=== PATIENT | male | born 1930 | race Caucasian/White ===

== ENCOUNTER → 2016-10-07 | Outpatient (CLI) | payer MEDICARE ==
[~2016-10-07] MED LIST: ALBU0.632 IH; ALBU0.8322 IH; ALBU2.5V4 IH; ALBU2.5V4 INH; ALDACTONE25 MG PO; AMIL5TAB3 PO; ASCO500C14 PO; ASPI325T32 PO; ATEN25TA PO; BUDE10.22 IH; CALC-9 PO; CARV3.122 PO; CARV6.252 PO; CEFD300C16 PO; CEFD300C3 PO; CETI10TA17 PO; COD1CAPS16 PO; DILT120C8 PO; DOXY100C2 PO; DOXY100C49 PO; FURO40TA4 PO; FURO80TA PO; FURO80TA3 PO; HYDR-3583 PO; IPR14IN INH; IPRA0.2S18 IH; IPRA0.2S47 IH; IPRA30SP NS; IPRA3AMP IH; KCL10CCR PO; LEVO750T24 PO; LORA10TA2 PO; LORA1TAB5 PO; MAGN400O7 PO; MPR22T TOP; NYST1000 PO; OMEP-10 PO; OMG1KC PO; ORPH100T; OXYC1TAB87 PO; POLY17PO23 PO; PRD10T PO; PRD20T PO; PRD5T PO; RT-COMBINH INH; SULF1TAB38 PO; WARF5TAB PO; WRF2.5T PO; WRF5T PO
--- NOTE | 2016-10-08 10:12 | ECHOCARDIOGRAPHY REPORT ---
DATE OF SERVICE: 10/07/2016 PROCEDURE: Two-dimensional echocardiogram. REFERRING PHYSICIAN: Dr. Mccray INDICATIONS: Congestive heart failure. MEASUREMENTS: LVID end diastolic 5.0. IVS thickness 1.1. LVPW thickness 1.0. Left atrial diameter 3.6. Ejection fraction 40%. FINDINGS: 1. Technical quality is good. 2. The left ventricle is prominent with diffuse left ventricle hypokinesia. Systolic function is reduced. Estimated ejection fraction 40%. 3. The left atrium is normal in size. No clot or thrombus were seen within the left atrium. 4. The right atrium and right ventricle are normal in size. No clot or thrombus were seen within the right side. 5. The mitral valve is normal in morphology with mild mitral regurgitation noted by color Doppler flow. No mitral valve prolapse. No mitral valve stenosis. 6. The aortic valve is trileaflet with normal opening and closing pattern. No significant aortic stenosis or regurgitation was seen. 7. The tricuspid valve is normal in morphology with mild tricuspid regurgitation noted by color Doppler flow. Doppler across tricuspid valve estimated pulmonary artery pressure of 15 plus right atrial pressure. 8. The pulmonic valve is functioning normally. 9. No pericardial effusion. CONCLUSION: 1. Prominent left ventricle with diffuse left ventricular hypokinesia. Systolic function is reduced. Estimated ejection fraction of 40%. 2. Mild mitral and tricuspid regurgitation. 3. Aortic valve sclerosis. No aortic stenosis. 4. Estimated pulmonary artery pressure of 20-25 mmHg. Job ID: [id number] DocumentID: [id number] Dictated Date: 10/07/2016 17:08:13 Solutions Developer Date: 10/08/2016 09:34:40 Dictated By: DC VÁZQUEZ MD
== END ==
LOC: CARD 15:04
PROVIDERS: ATTEND Internal Medicine Cardiovascular Disease
DX: R07.89 Other chest pain (principal); I50.9 Heart failure, unspecified; I44.4 Left anterior fascicular block; I51.7 Cardiomegaly; E78.2 Mixed hyperlipidemia
CPT/HCPCS: 93306

== ENCOUNTER 2016-11-04 19:05 | Inpatient (IN) | payer MEDICARE ==
[~2016-11-04] VITALS: Ht 180.3 cm; Wt 89.1 kg
[~2016-11-04 19:05] MED LIST changes: -ALBU2.5V4 IH; +ALBU2.5V4 NEB
[2016-11-04] MEDS ORDERED: FUROSEMIDE 40 MG/4 ML INJ (LASIX) IVP ONE (19:15)
[2016-11-04] MEDS ORDERED: methylPREDNISolone 125 MG (Solu-MEDROL) VIAL IVP ONE (19:15)
[2016-11-04] MEDS ORDERED: ACETAMINOPHEN 500 MG TAB (TYLENOL) PO ONE (19:15)
[2016-11-04] MEDS ORDERED: LACTATED RINGERS 1,000 ML IV ONE ×2 (19:35→21:07)
[2016-11-04 19:37] LABS: BASOPHILS % (AUTO) 0 % (0-10); EOSINOPHILS % (AUTO) 0 % (0-10); LYMPHOCYTES # (AUTO) 0.4 X 10^3 (1.0-4.0); LYMPHOCYTES % (AUTO) 3 % (12-44); MEAN CORPUSCULAR HEMOGLOBIN 31 PG (25-34); MEAN CORPUSCULAR HGB CONC 33 G/DL (32-36); MEAN CORPUSCULAR VOLUME 94 FL (80-99); MEAN PLATELET VOLUME 10.6 FL (7.4-10.4); MONOCYTES # (AUTO) 0.1 X 10^3 (0.0-1.0); MONOCYTES % (AUTO) 1 % (0-12); NEUTROPHILS # (AUTO) 9.7 X 10^3 (1.8-7.8); NEUTROPHILS % (AUTO) 95 % (42-75); PLATELET COUNT 75 10^3/uL (130-400); RED BLOOD COUNT 4.41 10^6/uL (4.35-5.85); RED CELL DISTRIBUTION WIDTH 14.8 % (10.0-14.5); WHITE BLOOD COUNT 10.2 10^3/uL (4.3-11.0)
[2016-11-04 19:53] LABS: INR 1.2 (0.8-1.4); PROTHROMBIN TIME PATIENT 14.7 SEC (12.2-14.7)
--- NOTE | 2016-11-04 19:53 | Diagnostic Imaging Report ---
INDICATION: Chest pain, shortness of air for several days COMPARISON STUDIES: None FINDINGS: A frontal view of the chest demonstrates previous sternotomy changes. There is blunting of the left costophrenic angle which could be from the surgery or small effusion. The vascularity is normal. The lungs are clear. IMPRESSION: There are postoperative changes with blunting of the left costophrenic angle which could be from a small effusion versus fibrosis from the patient's surgery. Dictated by: Dictated on workstation # [id number]
--- NOTE | 2016-11-04 19:58 | ED Respiratory ---
General Chief Complaint: Chest Pain Stated Complaint: SOB Source: patient (VERY LIMITED HISTORIAN), EMS History of Present Illness Time seen by provider: 19:00 Initial Comments PT ARRIVES VIA EMS FROM HOME--[facility] TREATMENT IS IN PROCESS ON ARRIVAL BY EMS C/O SHORTNESS OF BREATH--PT TELLS ME HE HAS BEEN FEELING THIS WAY FOR 2 WEEKS, EMS REPORT THAT IT HAD BEEN GOING ON FOR 3 DAYS C/O CHEST PAIN EARLIER, BUT NOT NOW LEGS ARE SWOLLEN, BUT PT STATES THEY SWELL AT TIMES PT HAS HAD GENERALIZED WEAKNESS, AND COULD NOT GET TO HIS HOME OXYGEN, WHICH HE USES PRN EMS REPORT O2 SAT AT HOME WAS 93% PT HAD TEMP OF 101.9 BY THEM AT THE RESIDENCE PT HAS BEEN INCONTINENT OF URINE EMS REPORT THAT NEITHER PT NOR HAVE EATEN TODAY, AND WAS GOING TO STAY AT HOME AND GET SOMETHING TO EAT--NO EXPLANATION TO WHY NEITHER HAD EATEN TODAY. IS UNKNOWN WHEN PT LAST HAD ANYTHING TO EAT OR DRINK NO OTHER RELEVANT INFORMATION IS OBTAINABLE PCP: DR. BECKER AT [facility] Allergies and Home Medications Allergies Coded Allergies: spironolactone (Verified Allergy, Unknown, 11/04/16) Home Medications ASA/Salicylam/Acetaminoph/Caff 1 Each Tablet, 1 EACH PO, (Reported) Albuterol Sulfate 0.63 Mg/3 Ml Vial.neb, 0.63 MG IH, (Reported) Budesonide/Formoterol Fumarate 10.2 Gm Hfa.aer.ad, 2 PUFF IH BID, (Reported) Calcium Carbonate 500 Mg Tablet, 500 MG PO, (Reported) Cod Liver Oil 1 Each Capsule, 1 EACH PO, (Reported) Fexofenadine/Pseudoephedrine 1 Each Tab.er.24h, 1 EACH PO, (Reported) Furosemide 80 Mg Tablet, 80 MG PO, (Reported) Ipratropium [place] 0.2 Mg/1 Ml Solution, 0.2 MG IH, (Reported) [place]-3 Fatty Acids 300 Mg Capsule, 300 MG PO, (Reported) Omeprazole 20 Mg Capsule.dr, 20 MG PO, (Reported) Polyethylene Glycol 3350 17 Gm Powd.pack, 17 GM PO, (Reported) Potassium 99 Mg Tablet, 99 MG PO, (Reported) Vit A/C/E/Zinc/Co 1 Cap Capsule, 1 CAP PO, (Reported) Constitutional: fever, malaise, weakness, other (VERY LIMITED) Respiratory: see HPI, short of breath Cardiovascular: chest pain, edema Musculoskeletal: see HPI (LEG SWELLING) Past Bcfdkgr-Pbnmkl-Tnlaeh Hx Family Medical History Other NO PMH IS OBTAINABLE AT THIS TIME, PT IS UNABLE TO ANSWER QUESTIONS AT THIS TIME NO OLD RECORDS ARE AVAILABLE NO FAMILY IS HERE WITH PT. Physical Exam Vital Signs Vital Sign - Last 12Hours 11/04/16 19:05 FiO2 97 Capillary Refill : General Appearance: mild distress, other (LETHARGIC. UMKEMPT. REEKS OF OLD URINE AND STOOL. ), thin HEENT: other (VERY DRY [place]) Respiratory: respiratory distress, decreased breath sounds, accessory muscle use, wheezing (DIFFUSE WHEEZING. ) Cardiovascular: no JVD, No JVD, other (HEART SOUNDS OBSCURED BY LUNG SOUNDS. TACHYCARDIA ON MONITOR) Gastrointestinal: non tender, soft Extremities: pedal edema (2-3+ EDEMA BILATERALLY) Neurologic/Psychiatric: other (HAND TREMORS. PT IS LETHARGIC. DOES MOVE ALL EXTREMITIES EQUALLY AND GROSS SENSORY IS INTACT. ) Skin: warm/dry (VERY WARM), jaundice (SLIGHTLY), pallor Focused Exam Lactic Acid Level Laboratory Tests Test 11/04/16 19:18 Lactic Acid Level 2.36 MMOL/L (0.50-2.00) *H Progress/Results/Core Measures Results/Orders Lab Results Laboratory Tests Test 11/04/16 19:18 11/04/16 19:50 11/04/16 20:05 Range/Units White Blood Count 10.2 4.3-11.0 10^3/uL Red Blood Count 4.41 4.35-5.85 10^6/uL Hemoglobin 13.5 13.3-17.7 G/DL Hematocrit 42 40-54 % Mean Corpuscular Volume 94 80-99 FL Mean Corpuscular Hemoglobin 31 25-34 PG Mean Corpuscular Hemoglobin Concent 33 32-36 G/DL Red Cell Distribution Width 14.8 H 10.0-14.5 % Platelet Count 75 L 130-400 10^3/uL Mean Platelet Volume 10.6 H 7.4-10.4 FL Neutrophils (%) (Auto) 95 H 42-75 % Lymphocytes (%) (Auto) 3 L 12-44 % Monocytes (%) (Auto) 1 0-12 % Eosinophils (%) (Auto) 0 0-10 % Basophils (%) (Auto) 0 0-10 % Neutrophils # (Auto) 9.7 H 1.8-7.8 X 10^3 Lymphocytes # (Auto) 0.4 L 1.0-4.0 X 10^3 Monocytes # (Auto) 0.1 0.0-1.0 X 10^3 Eosinophils # (Auto) 0.0 0.0-0.3 10^3/uL Basophils # (Auto) 0.0 0.0-0.1 10^3/uL Neutrophils % (Manual) 77 % Lymphocytes % (Manual) 9 % Monocytes % (Manual) 0 % Eosinophils % (Manual) 0 % Basophils % (Manual) 0 % Band Neutrophils 14 % Blood Morphology Comment NORMAL Prothrombin Time 14.7 12.2-14.7 SEC INR Comment 1.2 0.8-1.4 Activated Partial Thromboplast Time 30 24-35 SEC Sodium Level 142 135-145 MMOL/L Potassium Level 3.4 L 3.6-5.0 MMOL/L Chloride Level 99 98-107 MMOL/L Carbon Dioxide Level 30 21-32 MMOL/L Anion Gap 13 5-14 MMOL/L Blood Urea Nitrogen 31 H 7-18 MG/DL Creatinine 1.36 H 0.60-1.30 MG/DL Estimat Glomerular Filtration Rate 50 BUN/Creatinine Ratio 23 Glucose Level 96 70-105 MG/DL Lactic Acid Level 2.36 *H 0.50-2.00 MMOL/L Calcium Level 9.1 8.5-10.1 MG/DL Magnesium Level 2.1 1.8-2.4 MG/DL Total Bilirubin 3.5 H 0.1-1.0 MG/DL Aspartate Amino Transf (AST/SGOT) 56 H 5-34 U/L Alanine Aminotransferase (ALT/SGPT) 44 0-55 U/L Alkaline Phosphatase 298 H 40-136 U/L Total Creatine Kinase 117 30-200 U/L Creatine Kinase MB 2.0 <6.6 NG/ML Troponin I < 0.30 <0.30 NG/ML B-Type Natriuretic Peptide 317.5 H <100.0 PG/ML Total Protein 5.9 L 6.4-8.2 G/DL Albumin 3.6 3.2-4.5 G/DL TSH [place] Testing 1.65 0.35-4.94 UIU/ML Blood Gas Puncture Site RIGHT RADIAL Blood Gas Patient Temperature 102.3 Arterial Blood pH 7.47 H 7.37-7.43 Arterial Blood Partial Pressure CO2 39 35-45 MMHG Arterial Blood Partial Pressure O2 82 79-93 MMHG Arterial Blood HCO3 28 H 23-27 MMOL/L Arterial Blood Total CO2 28.6 21.0-31.0 MMOL/L Arterial Blood Oxygen Saturation 96 94-100 % Arterial Blood Base Excess 4.3 H -2.5-2.5 MMOL/L Wayne Test POSITIVE Blood Gas Ventilator Setting NO Blood Gas Inspired Oxygen 2L Urine Color YELLOW Urine Clarity CLEAR Urine pH 5 5-9 Urine Specific [place] 1.010 L 1.016-1.022 Urine Protein NEGATIVE NEGATIVE Urine Glucose (UA) NEGATIVE NEGATIVE Urine Ketones NEGATIVE NEGATIVE Urine Nitrite NEGATIVE NEGATIVE Urine Bilirubin NEGATIVE NEGATIVE Urine Urobilinogen 1 NORMAL MG/DL Urine Leukocyte Esterase NEGATIVE NEGATIVE Urine RBC (Auto) NEGATIVE NEGATIVE Urine RBC 0-2 /HPF Urine WBC RARE /HPF Urine Crystals NONE /LPF Urine Bacteria NEGATIVE /HPF Urine Casts PRESENT /LPF Urine Hyaline Casts 10-25 H /LPF Urine Mucus SMALL H /LPF Urine Culture Indicated NO My Orders Orders - COLLIN PENA DO Saline Lock/Iv-Start (11/04/16 19:09) Ekg Tracing (11/04/16 19:09) O2 (11/04/16 19:09) Monitor-Rhythm Ecg Trace Only (11/04/16 19:09) Arterial Blood Gas (11/04/16 19:09) BNP (11/04/16 19:09) Cbc With Automated Diff (11/04/16:09) Comprehensive Metabolic Panel (11/04/16 19:09) Creatine Kinase (11/04/16 19:09) Creatine Kinase Mb (11/04/16 19:09) Lactic Acid Analyzer (11/04/16 19:09) Magnesium (11/04/16 19:09) Protime With Inr (11/04/16:09) Partial Thromboplastin Time (11/04/16 19:09) Thyroid Analyzer (11/04/16 19:09) Troponin I (11/04/16 19:09) Ua Culture If Indicated (11/04/16:09) Blood Culture (11/04/16 19:09) Chest 1 View, Ap/Pa Only (11/04/16 19:09) Furosemide Injection (Lasix Injection) (11/04/16 19:15) Methylprednisolone Sod Succ (Solu-Medrol (11/04/16 19:15) Catheter(Urinary) Insert & Ass 03,15 (11/04/16 19:13) Acetaminophen Tablet (Tylenol Tablet) (11/04/16 19:15) Saline Lock/Iv-Start (11/04/16 19:35) Lactated Ringers (Lr 1000 Ml Iv Solution (11/04/16 19:35) Manual Differential (11/04/16 19:18) Medications Given in ED Current Medications Medications Dose Ordered Sig/Melissa Route Start Time Stop Time Status Last Admin Dose Admin Acetaminophen 1,000 mg ONCE ONCE PO 11/04/16 19:15 11/04/16 19:16 DC 11/04/16 19:27 1,000 MG Furosemide 80 mg ONCE ONCE IVP 11/04/16 19:15 11/04/16 19:16 DC 11/04/16 19:29 80 MG Lactated Ringer's 1,000 ml @ 0 mls/hr Q0M ONCE IV 11/04/16 19:35 11/04/16 19:36 DC 11/04/16 19:39 999 MLS/HR Methylprednisolone Sodium Succinate 125 mg ONCE ONCE IVP 11/04/16 19:15 11/04/16 19:16 DC 11/04/16 19:27 125 MG Vital Signs/I&O Vital Sign - Last 12Hours 11/04/16 11/04/16 11/04/16 11/04/16 19:05 19:05 19:05 19:27 Temp 99.9 99.9 Pulse 123 Resp 24 B/P (MAP) 112/66 Pulse Ox 99 97 O2 Delivery Nasal Cannula Nasal Cannula Nasal Cannula O2 Flow Rate 2.0 2.0 2.00 FiO2 97 Progress Note : Progress Note O2 SATS UP WITH O2 AND NEB TREATMENT COMPLETE BP UP WITH FLUIDS AND IS > 120 SYSTOLIC AT TIME OF ADMIT. HEART RATE DOWN AT TIME OF ADMIT. TEMP DOWN AT TIME OF ADMIT. NO DETERIORATION IN PT'S CONDITION DURING ER STAY BEGAN TO C/O PAIN TO BACK DUE TO UNCOMFORTABLE BED AND PT BECOMING ANXIOUS AND AGITATED ABOUT THAT--MORPHINE GIVEN WITH SOME RELIEF ECG Initial ECG Impression Time: 19:08 Initial ECG Rate: 123 Initial ECG Rhythm: Normal Sinus (MUCH ARTIFACT) Initial ECG Comparisson: No Previous ECG Available Diagnostic Imaging Comments CXR--NO ACUTE PROCESS, PER RADIOLOGIST REPORT @ 1958--APPEARS TO ME THAT THERE MAY BE RIGHT PERIHILAR/LOWER LOBE INFILTRATE Reviewed: Reviewed by Me Departure Communication Progress Notes 2009--SPOKE WITH DR. ROMANO ( [facility] FOR [facility] ) --ACCEPTS PT FOR ADMIT. Impression Impression: Primary Impression: Pneumonia Additional Impressions: Hypoxia Dehydration Elevated bilirubin Thrombocytopenia Sepsis Disposition: ADMITTED INPATIENT Condition: Improved Decision to Admit Reason: Admit from ER (General) Decision to Admit/Date: November 04, 2016 Time/Decision to Admit Time: 20:10 Departure-Patient Inst. Referrals: UNKNOWN (PCP) Primary Care Physician COLLIN PENA DO November 04, 2016 19:58
[2016-11-04 19:59] LABS: ABG BASE EXCESS 4.3 MMOL/L (-2.5-2.5); ABG HCO3 28 MMOL/L (23-27); ABG OXYGEN SATURATION 96 % (94-100); ABG PCO2 39 MMHG (35-45); ABG PH 7.47 (7.37-7.43); ABG PO2 82 MMHG (79-93); ABG TCO2 28.6 MMOL/L (21.0-31.0)
[2016-11-04 20:01] LABS: ALLENS TEST POSITIVE; PATIENT TEMP 102.3
[2016-11-04 20:03] LABS: ALANINE AMINOTRANSFERASE 44 U/L (0-55); ALBUMIN 3.6 G/DL (3.2-4.5); ANION GAP 13 MMOL/L (5-14); ASPARTATE AMINO TRANSFERASE 56 U/L (5-34); BAND NEUTROPHILS 14 %; BASOPHILS % (MANUAL) 0 %; BILIRUBIN,TOTAL 3.5 MG/DL (0.1-1.0); BLOOD UREA NITROGEN 31 MG/DL (7-18); BUN/CREATININE RATIO 23; CALCIUM 9.1 MG/DL (8.5-10.1); CARBON DIOXIDE 30 MMOL/L (21-32); CHLORIDE 99 MMOL/L (98-107); CREATINE KINASE 117 U/L (30-200); CREATININE SERUM 1.36 MG/DL (0.60-1.30); EOSINOPHILS % (MANUAL) 0 %; GFR ESTIMATED 50; GLUCOSE 96 MG/DL (70-105); LYMPHOCYTES % (MANUAL) 9 %; MAGNESIUM 2.1 MG/DL (1.8-2.4); NEUTROPHILS % (MANUAL) 77 %; POTASSIUM 3.4 MMOL/L (3.6-5.0); SODIUM 142 MMOL/L (135-145); TOTAL PROTEIN 5.9 G/DL (6.4-8.2)
[2016-11-04] MEDS ORDERED: cefTRIAXone INJECTION 1,000 MG in NS (IVPB) 50 ML IV ONE (20:15)
[2016-11-04 20:23] LABS: TROPONIN I < 0.30 NG/ML (<0.30)
[2016-11-04 20:35] LABS: BILIRUBIN,URINE NEGATIVE (NEGATIVE); KETONES,URINE NEGATIVE (NEGATIVE); LEUKOCYTE ESTERASE ,URINE NEGATIVE (NEGATIVE); NITRITE,URINE NEGATIVE (NEGATIVE); PH,URINE 5 (5-9); PROTEIN,URINE NEGATIVE (NEGATIVE); UROBILINOGEN,URINE 1 MG/DL (NORMAL)
[2016-11-04 20:39] LABS: WBC,URINE RARE /HPF
[2016-11-04] MEDS ORDERED: NS IV 1000 ML 1,000 ML ONE ×2 (21:05→23:37)
[2016-11-04] MEDS ORDERED: NS IV 1000 ML 1,000 ML IV ONE (21:07)
[2016-11-04] MEDS ORDERED: fentaNYL INJECTION 100 MCG/2 ML AMP IVP STA (21:22)
[2016-11-04] MEDS ORDERED: IPRA0.2S51 NEB (21:42)
[2016-11-04] MEDS ORDERED: VIT1CAPS5 PO (21:46)
[2016-11-04] MEDS ORDERED: POLY17PO6 PO (21:46)
[2016-11-04] MEDS ORDERED: POTA99TA7 PO (21:46)
[2016-11-04] MEDS ORDERED: OMEG300C3 PO (21:46)
[2016-11-04] MEDS ORDERED: BUDE10.22 IH (21:46)
[2016-11-04] MEDS ORDERED: CALC-823 PO (21:46)
[2016-11-04] MEDS ORDERED: ASA/1TAB6 PO (21:46)
[2016-11-04] MEDS ORDERED: FURO80TA3 PO (21:46)
[2016-11-04] MEDS ORDERED: FEXO1TAB43 PO (21:46)
[2016-11-04] MEDS ORDERED: OMEP20CA12 PO (21:46)
[2016-11-04] MEDS ORDERED: ALBU0.63 IH (21:46)
[2016-11-04] MEDS ORDERED: COD1CAPS6 PO (21:46)
[2016-11-04 22:00] VITALS: BP 122/68
[2016-11-04] MEDS ORDERED: fentaNYL INJECTION 100 MCG/2 ML AMP IV PRN (22:15)
[2016-11-04] MEDS ORDERED: AZITHROMYCIN 500 MG/NS 250 ML IVPB IV ONE ×2 (22:15)
[2016-11-04] MEDS ORDERED: ACETAMINOPHEN 500 MG TAB (TYLENOL) PO PRN (22:15)
[2016-11-04] MEDS ORDERED: CATHETER FLUSH 10 ML SYR IV PRN (22:15)
[2016-11-04] MEDS: D5 1/2 NS W/KCL 20 MEQ/L 1,000 ML IV SCH (23:05)
[2016-11-04] MEDS ORDERED: RT-ALBUTEROL SULF 2.5 MG/3 ML PRE-MIX VIAL IH PRN (23:15)
[2016-11-04 23:30] VITALS: BP 69/42
[2016-11-04 23:35] VITALS: BP 70/40
[2016-11-04 23:45] VITALS: BP 69/49
[2016-11-04] MEDS ORDERED: PHENYLEPHRINE INJ 10 MG/ML (NEO-SYNEPHRINE 1%) ONE (23:51)
[2016-11-04] MEDS ORDERED: D5W 250 ML (IVPB) 250 ML IV ONE (23:51)
[2016-11-04 23:58] LABS: ABG HCO3 27 MMOL/L (23-27); ABG OXYGEN SATURATION 99 % (94-100); ABG PCO2 40 MMHG (35-45); ABG PH 7.44 (7.37-7.43); ABG PO2 166 MMHG (79-93); ABG TCO2 27.7 MMOL/L (21.0-31.0)
[2016-11-04 23:59] LABS: ALLENS TEST YES-POS; PATIENT TEMP 100.9
[2016-11-05] VITALS (31 sets, daily range): BP systolic 64–160; BP diastolic 44–76
[2016-11-05] MEDS ORDERED: NS IV 1000 ML 1,000 ML ONE ×3 (00:16→07:41)
[2016-11-05 00:29] LABS: BASOPHILS % (AUTO) 0 % (0-10); EOSINOPHILS % (AUTO) 0 % (0-10); LYMPHOCYTES # (AUTO) 0.4 X 10^3 (1.0-4.0); LYMPHOCYTES % (AUTO) 2 % (12-44); MEAN CORPUSCULAR HEMOGLOBIN 30 PG (25-34); MEAN CORPUSCULAR HGB CONC 32 G/DL (32-36); MEAN CORPUSCULAR VOLUME 95 FL (80-99); MEAN PLATELET VOLUME 10.9 FL (7.4-10.4); MONOCYTES # (AUTO) 0.7 X 10^3 (0.0-1.0); MONOCYTES % (AUTO) 4 % (0-12); NEUTROPHILS # (AUTO) 15.5 X 10^3 (1.8-7.8); NEUTROPHILS % (AUTO) 94 % (42-75); PLATELET COUNT 67 10^3/uL (130-400); RED BLOOD COUNT 3.67 10^6/uL (4.35-5.85); RED CELL DISTRIBUTION WIDTH 14.7 % (10.0-14.5); WHITE BLOOD COUNT 16.5 10^3/uL (4.3-11.0)
[2016-11-05 00:47] LABS: ANION GAP 14 MMOL/L (5-14); BLOOD UREA NITROGEN 30 MG/DL (7-18); BUN/CREATININE RATIO 22; CALCIUM 7.9 MG/DL (8.5-10.1); CARBON DIOXIDE 24 MMOL/L (21-32); CHLORIDE 104 MMOL/L (98-107); CREATININE SERUM 1.34 MG/DL (0.60-1.30); GFR ESTIMATED 51; GLUCOSE 98 MG/DL (70-105); MAGNESIUM 1.4 MG/DL (1.8-2.4); PHOSPHORUS 2.3 MG/DL (2.3-4.7); SODIUM 142 MMOL/L (135-145)
[2016-11-05 00:54] LABS: TROPONIN I < 0.30 NG/ML (<0.30)
[2016-11-05 01:04] LABS: BAND NEUTROPHILS 21 %; BASOPHILS % (MANUAL) 0 %; EOSINOPHILS % (MANUAL) 0 %; LYMPHOCYTES % (MANUAL) 6 %; NEUTROPHILS % (MANUAL) 70 %
[2016-11-05] MEDS ORDERED: NOREPINEPHRINE 4 MG/4 ML (LEVOPHED) AMP IV ONE (01:21)
[2016-11-05] MEDS ORDERED: D5W 250 ML (IVPB) 250 ML IV ONE (01:21)
[2016-11-05] MEDS: methylPREDNISolone 125 MG (Solu-MEDROL) VIAL IV SCH ×2 (01:33→05:59)
--- NOTE | 2016-11-05 01:33 | Consultation ---
History of Present Illness History of Present Illness Patient Consulted On(david/time) 11/05/16 01:27 Date of Admission History of Present Illness Surgery asked to consult for Septic Shock and Venous insufficiency with need for central line access in order to give pressors. HPI: Pt initially presented to ER with c/o SOB, told ER physician he had been feeling bad for 2 weeks, per EMS it was 3 days. He had also c/o chest pain which has since gone away and Troponin and EKG were negative. Pt reports leg edema; which comes and goes. Pt also reported generalized weakness and unable to get to his home O2, per EMS O2 sat was 93%, and pt had temp of 101.9. Pt was incontinent of urine at home. NO OTHER RELEVANT INFORMATION IS OBTAINABLE, pt can answer to name but doesn't really answer questions. He nodded consent to 2 nurses and nursing stationary engineer supervisor for procedure. Attempted to get on phone 7 times, unsuccessful. Allergies and Home Medications Allergies Coded Allergies: spironolactone (Verified Allergy, Unknown, 11/04/16) Home Medications ASA/Salicylam/Acetaminoph/Caff 1 Each Tablet, 1 EACH PO, (Reported) Albuterol Sulfate 0.63 Mg/3 Ml Vial.neb, 0.63 MG IH, (Reported) Budesonide/Formoterol Fumarate 10.2 Gm Hfa.aer.ad, 2 PUFF IH BID, (Reported) Calcium Carbonate 500 Mg Tablet, 500 MG PO, (Reported) Cod Liver Oil 1 Each Capsule, 1 EACH PO, (Reported) Fexofenadine/Pseudoephedrine 1 Each Tab.er.24h, 1 EACH PO, (Reported) Furosemide 80 Mg Tablet, 80 MG PO, (Reported) Ipratropium [place] 0.2 Mg/1 Ml Solution, 0.2 MG IH, (Reported) [place]-3 Fatty Acids 300 Mg Capsule, 300 MG PO, (Reported) Omeprazole 20 Mg Capsule.dr, 20 MG PO, (Reported) Polyethylene Glycol 3350 17 Gm Powd.pack, 17 GM PO, (Reported) Potassium 99 Mg Tablet, 99 MG PO, (Reported) Vit A/C/E/Zinc/Co 1 Cap Capsule, 1 CAP PO, (Reported) Past Dyvfbyx-Qzxnfo-Cmpmna Hx Patient Social History Alcohol Use: Denies Use Recreational Drug Use: No Smoking Status: Never a Smoker 2nd Hand Smoke Exposure: No Recent Foreign Travel: No Contact w/Someone Who Travel: No Recent Infectious Disease Expo: No Recent Hopitalizations: No Physical Abuse Screen: No Sexual Abuse: No Seasonal Allergies Seasonal Allergies: No Surgeries HX Surgeries: Yes Surgeries: CABG Respiratory Respiratory Disorders: Pneumonia, COPD Cardiovascular Cardiac Disorders: Hypertension Family Medical History Significant Family History: Other Conditions/Hx (unable to obtain) Other Unable to obtain any family history or other past medical history. Review of Systems-General ROS-Unable to Obtain: All information from chart and minimal from pt, unable to obtain answers Constitutional: chills, fever, malaise, weakness, weight loss EENTM: hearing loss, vision loss Respiratory: cough, dyspnea on exertion, short of breath Cardiovascular: chest pain, edema, Hx of Intervention Gastrointestinal: No abdominal pain, No diarrhea Genitourinary: hesitancy, incontinence, No pain Musculoskeletal: joint pain, joint swelling, muscle stiffness Physical Exam-General Problems Physical Exam Vital Signs Vital Sign - Last 12Hours 11/04/16 19:05 FiO2 97 Capillary Refill : Less Than 3 Seconds General Appearance: cachetic, severe distress, thin Eyes: Right Eye Abnormal Pupil (?? surgical pupil), Bilateral Eye EOMI HEENT: pharynx normal, No scleral icterus (R), No scleral icterus (L) Neck: non-tender, supple Respiratory: respiratory distress, accessory muscle use, crackles Cardiovascular: tachycardia, systolic murmur Gastrointestinal: normal bowel sounds, non tender, soft, no organomegaly Neurologic/Psychiatric: other (alert to name, but not place or time) Skin: cool, pallor Data Review Labs Laboratory Tests 11/04/16 19:18: White Blood Count 10.2, Red Blood Count 4.41, Hemoglobin 13.5, Hematocrit 42, Mean Corpuscular Volume 94, Mean Corpuscular Hemoglobin 31, Mean Corpuscular Hemoglobin Concent 33, Red Cell Distribution Width 14.8H, Platelet Count 75L, Mean Platelet Volume 10.6H, Neutrophils (%) (Auto) 95H, Lymphocytes (%) (Auto) 3L, Monocytes (%) (Auto) 1, Eosinophils (%) (Auto) 0, Basophils (%) (Auto) 0, Neutrophils # (Auto) 9.7H, Lymphocytes # (Auto) 0.4L, Monocytes # (Auto) 0.1, Eosinophils # (Auto) 0.0, Basophils # (Auto) 0.0, Neutrophils % (Manual) 77, Lymphocytes % (Manual) 9, Monocytes % (Manual) 0, Eosinophils % (Manual) 0, Basophils % (Manual) 0, Band Neutrophils 14, Blood Morphology Comment NORMAL, Prothrombin Time 14.7, INR Comment 1.2, Activated Partial Thromboplast Time 30, Sodium Level 142, Potassium Level 3.4L, Chloride Level 99, Carbon Dioxide Level 30, Anion Gap 13, Blood Urea Nitrogen 31H, Creatinine 1.36H, Estimat Glomerular Filtration Rate 50, BUN/Creatinine Ratio 23, Glucose Level 96, Lactic Acid Level 2.36*H, Calcium Level 9.1, Magnesium Level 2.1, Total Bilirubin 3.5H, Aspartate Amino Transf (AST/SGOT) 56H, Alanine Aminotransferase (ALT/SGPT) 44, Alkaline Phosphatase 298H, Total Creatine Kinase 117, Creatine Kinase MB 2.0, Troponin I < 0.30, B-Type Natriuretic Peptide 317.5H, Total Protein 5.9L, Albumin 3.6, TSH [place] Testing 1.65 11/04/16 19:50: Blood Gas Puncture Site RIGHT RADIAL, Blood Gas Patient Temperature 102.3, Arterial Blood pH 7.47H, Arterial Blood Partial Pressure CO2 39, Arterial Blood Partial Pressure O2 82, Arterial Blood HCO3 28H, Arterial Blood Total CO2 28.6, Arterial Blood Oxygen Saturation 96, Arterial Blood Base Excess 4.3H, [place] Test POSITIVE, Blood Gas Ventilator Setting NO, Blood Gas Inspired Oxygen 2L 11/04/16 20:05: Urine Color YELLOW, Urine Clarity CLEAR, Urine pH 5, Urine Specific [place] 1.010L, Urine Protein NEGATIVE, Urine Glucose (UA) NEGATIVE, Urine Ketones NEGATIVE, Urine Nitrite NEGATIVE, Urine Bilirubin NEGATIVE, Urine Urobilinogen 1 , Urine Leukocyte Esterase NEGATIVE, Urine RBC (Auto) NEGATIVE, Urine RBC 0-2, Urine WBC RARE, Urine Crystals NONE, Urine Bacteria NEGATIVE, Urine Casts PRESENT, Urine Hyaline Casts 10-25H, Urine Mucus SMALLH, Urine Culture Indicated NO 11/04/16 21:28: Lactic Acid Level 3.97*H 11/04/16 23:55: Blood Gas Puncture Site RT RAD, Blood Gas Patient Temperature 100.9, Arterial Blood pH 7.44H, Arterial Blood Partial Pressure CO2 40, Arterial Blood Partial Pressure O2 166H, Arterial Blood HCO3 27, Arterial Blood Total CO2 27.7, Arterial Blood Oxygen Saturation 99, Arterial Blood Base Excess 3.0H, [place] Test YES-POS, Blood Gas Ventilator Setting NO, Blood Gas Inspired Oxygen 6L 11/05/16 00:20: White Blood Count 16.5H, Red Blood Count 3.67L, Hemoglobin 11.1L, Hematocrit 35L , Mean Corpuscular Volume 95, Mean Corpuscular Hemoglobin 30, Mean Corpuscular Hemoglobin Concent 32, Red Cell Distribution Width 14.7H, Platelet Count 67L, Mean Platelet Volume 10.9H, Neutrophils (%) (Auto) 94H, Lymphocytes (%) (Auto) 2L, Monocytes (%) (Auto) 4, Eosinophils (%) (Auto) 0, Basophils (%) (Auto) 0, Neutrophils # (Auto) 15.5H, Lymphocytes # (Auto) 0.4L, Monocytes # (Auto) 0.7, Eosinophils # (Auto) 0.0, Basophils # (Auto) 0.0, Neutrophils % (Manual) 70, Lymphocytes % (Manual) 6, Monocytes % (Manual) 3, Eosinophils % (Manual) 0, Basophils % (Manual) 0, Band Neutrophils 21, Toxic Granulation 2+, Blood Morphology Comment NORMAL, Sodium Level 142, Potassium Level 3.0L, Chloride Level 104, Carbon Dioxide Level 24, Anion Gap 14, Blood Urea Nitrogen 30H, Creatinine 1.34H, Estimat Glomerular Filtration Rate 51, BUN/Creatinine Ratio 22 , Glucose Level 98, Lactic Acid Level 2.70*H, Calcium Level 7.9L, Phosphorus Level 2.3, Magnesium Level 1.4L, Troponin I < 0.30 11/05/16 00:30: Stool Occult Blood Immunoassay NEGATIVE Assessment/Plan Assessment/Plan Assessment/Plan Septic Shock Venous insufficiency Hypokalemia Thrombocytopenia Leukocytosis Elevated Lactic Acid I assessed this pt to find out necessity of central line and the risks associated with proceeding to place central line. He is at increased risk of bleeding and problems because of his Thrombocytopenia. However, his SBP was in 60's and only barely into low 80's with pressors. The need to give a pressor through a central line outweighs any minimal bleeding potential. Triple lumen central line was placed with US guidance. This is a late entry consult entered after central line placement, assessment and physical exam done before proceeding with central line. GEORGE KRAMER DO Nov 05, 2016 01:33
[2016-11-05] MEDS: NOREPINEPHRINE 4 MG in D5W 250 ML (IVPB) 250 ML IV SCH ×5 (01:41→20:06)
[2016-11-05] MEDS ORDERED: POTASSIUM CL 10MEQ/50ML IVPB 50 ML IV ONE (01:45)
[2016-11-05] MEDS: MAGNESIUM 1 GM/100 ML IVPB 100 ML IV SCH ×2 (01:55→02:50)
[2016-11-05] MEDS: POTASSIUM CL 10MEQ/50ML IVPB 50 ML IV SCH ×6 (01:56→06:00)
[2016-11-05] MEDS ORDERED: ALBUMIN 5% 12.5 GM/250 ML 500 ML IV ONE ×2 (02:12→03:45)
[2016-11-05 04:05] LABS: BASOPHILS % (AUTO) 0 % (0-10); EOSINOPHILS # (AUTO) 0.1 10^3/uL (0.0-0.3); EOSINOPHILS % (AUTO) 0 % (0-10); LYMPHOCYTES # (AUTO) 0.8 X 10^3 (1.0-4.0); LYMPHOCYTES % (AUTO) 3 % (12-44); MEAN CORPUSCULAR HEMOGLOBIN 31 PG (25-34); MEAN CORPUSCULAR HGB CONC 32 G/DL (32-36); MEAN CORPUSCULAR VOLUME 95 FL (80-99); MEAN PLATELET VOLUME 11.8 FL (7.4-10.4); MONOCYTES # (AUTO) 1.4 X 10^3 (0.0-1.0); MONOCYTES % (AUTO) 5 % (0-12); NEUTROPHILS # (AUTO) 25.1 X 10^3 (1.8-7.8); NEUTROPHILS % (AUTO) 92 % (42-75); PLATELET COUNT 67 10^3/uL (130-400); RED CELL DISTRIBUTION WIDTH 14.7 % (10.0-14.5); WHITE BLOOD COUNT 27.4 10^3/uL (4.3-11.0)
[2016-11-05 04:16] LABS: ALBUMIN 2.9 G/DL (3.2-4.5); BILIRUBIN,TOTAL 2.8 MG/DL (0.1-1.0); CALCIUM 7.5 MG/DL (8.5-10.1); CREATININE SERUM 1.28 MG/DL (0.60-1.30); MAGNESIUM 2.1 MG/DL (1.8-2.4); PHOSPHORUS 2.5 MG/DL (2.3-4.7); POTASSIUM 3.5 MMOL/L (3.6-5.0); TOTAL PROTEIN 4.5 G/DL (6.4-8.2)
--- NOTE | 2016-11-05 04:17 | Progress Note-Standard ---
Standard Progress Note Progress Notes/Assess & Plan Progress/Assessment & Plan consult for james / intubation. pt somewhat responsive. labs checked. Rsi with 80 mg succinylcholine and 20mg etomidate given iv push. intubated with 8.0 ETT x1 attempt with montoya 2 blade. secured . bbs. james in x 1 attempt to right radial artery. cap refill less than 2. start time 0350 end time 0410 ANTOINETTE JACOBO CRNA Nov 05, 2016 04:17
[2016-11-05] MEDS: PROPOFOL DRIP (ICU) 100 ML IV SCH ×4 (04:37→21:40)
[2016-11-05] MEDS ORDERED: AMIODARONE 150 MG/3 ML (CORDARONE) AMP IV ONE (04:43)
[2016-11-05] MEDS ORDERED: fentaNYL INJECTION 100 MCG/2 ML AMP IVP PRN (04:45)
[2016-11-05] MEDS ORDERED: D5W 100 ML IVPB 100 ML IV ONE (04:49)
[2016-11-05] MEDS ORDERED: AMIODARONE FOR BOLUS 150 MG in D5W 100 ML IVPB 100 ML IV ONE (05:00)
[2016-11-05 05:02] LABS: ABG BASE EXCESS -2.7 MMOL/L (-2.5-2.5); ABG HCO3 22 MMOL/L (23-27); ABG OXYGEN SATURATION 96 % (94-100); ABG PCO2 42 MMHG (35-45); ABG PO2 84 MMHG (79-93); ABG TCO2 23.5 MMOL/L (21.0-31.0)
[2016-11-05 05:03] LABS: ABG PH 7.34 (7.37-7.43)
[2016-11-05 05:04] LABS: ALLENS TEST ART LINE
[2016-11-05] MEDS ORDERED: SODIUM BICARB 8.4% 50 MEQ/50 ML (ABBOTT) SYR ONE (05:11)
[2016-11-05] MEDS ORDERED: SODIUM BICARB 8.4% 50 MEQ/50 ML (ABBOTT) SYR IV ONE (05:30)
[2016-11-05 05:54] LABS: BAND NEUTROPHILS 33 %; LYMPHOCYTES % (MANUAL) 1 %; METAMYELOCYTES % 2 %; NEUTROPHILS % (MANUAL) 59 %
[2016-11-05] MEDS: CATHETER FLUSH 10 ML SYR IV SCH ×2 (05:59→14:38)
[2016-11-05] MEDS: PANTOPRAZOLE 40 MG/10 ML (PROTONIX) VIAL IV SCH ×2 (05:59→08:21)
[2016-11-05] MEDS ORDERED: MAGNESIUM 1 GM/100 ML IVPB 100 ML IV SCH (06:00)
[2016-11-05] MEDS ORDERED: POTASSIUM CL 10MEQ/50ML IVPB 50 ML IV SCH (06:00)
[2016-11-05] MEDS ORDERED: SUCCINYLCHOLINE INJ 100 MG/5 ML SYR INJ ONE (06:00)
[2016-11-05] MEDS ORDERED: ETOMIDATE IV SOLN 20 MG/10 ML VIAL IV ONE (06:00)
[2016-11-05] MEDS ORDERED: fentaNYL INJECTION 100 MCG/2 ML AMP IV PRN (06:15)
[2016-11-05] MEDS ORDERED: RT-ALBUTEROL/IPRATROPIUM 3 ML (DUONEB) VIAL INH SCH (07:00)
[2016-11-05] MEDS ORDERED: LEVOFLOXACIN 750 MG/150 ML IV 150 ML IV SCH (07:00)
--- NOTE | 2016-11-05 07:10 | Diagnostic Imaging Report ---
INDICATION: Evaluate central line placement. COMPARISON: Earlier same day FINDINGS: Single frontal radiographic view of the chest was obtained and demonstrates interval placement of right internal jugular central venous catheter, tip of which appears to terminate in the low SVC. Sternotomy wires are noted. Cardiac silhouette and pulmonary vasculature is stable. Evaluation of lung bustillo suggest developing patchy opacities in the right upper lung field. There is no pneumothorax on either side. IMPRESSION: 1. New right-sided internal jugular central venous catheter as described above. 2. Findings suspicious for developing patchy infiltrate in the right upper lung field. Continued followup is recommended. 3. No pneumothorax. Dictated by: Dictated on workstation # [id number]
--- NOTE | 2016-11-05 07:15 | OPERATIVE REPORT ---
DATE OF SERVICE: 11/05/2016 PREOPERATIVE DIAGNOSES: 1. Septic shock. 2. Venous insufficiency. 3. Thrombocytopenia. 4. Hypokalemia. 5. Leukocytosis. POSTOPERATIVE DIAGNOSES: 1. Septic shock. 2. Venous insufficiency. 3. Thrombocytopenia. 4. Hypokalemia. 5. Leukocytosis. PROCEDURE: Triple lumen catheter placement, right IJ, with ultrasound guidance. SURGEON: Renny Garcia DO TRAIN ATTENDANT: None. ANESTHESIA: Local lidocaine. BLOOD LOSS: Less than 5 mL. SPECIMENS: None. INDICATIONS FOR PROCEDURE: The patient is an 86-year-old male who was brought via EMS secondary to respiratory distress. He appeared to be in sepsis, responded to fluid bolus, was transferred to the floor but then on the floor blood pressures continued to be low and transferred to the ICU. Needed central line for IV access and for increased pressors. FINDINGS: The patient had a right IJ placed under ultrasound guidance, first attempt. Postoperative chest x-ray looked good. PROCEDURE NOTE: After consent was obtained from the patient, unable to get a hold of any family after multiple attempts, patient in his bed was sterilely prepped and draped in the normal fashion. Local lidocaine was used to infiltrate above the right IJ. Using ultrasound guidance, watched the needle enter the vein as it went in, first attempt. Good flash of blood. Removed the syringed. Then placed a guide wire down the needle using Seldinger technique. Actually, checked again with the ultrasound and the guide wire was down in good position, removed the needle, made a stab incision along the guide wire and then over the guide wire, placed the dilator using the Seldinger technique. Went in easily, then removed this and then placed the triple lumen catheter over the guide wire using Seldinger technique. It went in easily. Removed the guide wire. Then had placed 3 locking ports onto the triple lumen catheter and used saline, easily aspirated and then flushed all ports without any difficulty. Sutured the central line in place with a 3-0 silk suture. Then cleaned and dried the area. Placed the special antibiotic disk under the central line and then placed the Tegederm dressing. The patient had been in Trendelenburg. He was taken out of Trendelenburg. He tolerated the procedure well and a stat chest x-ray regarding line placement was ordered. The central line appeared to be in good position. No pneumothorax seen. Job ID: [id number] DocumentID: [id number] Dictated Date: 11/05/2016 01:47:32 Maintenance Painter Apprentice Date: 11/05/2016 07:15:19 Dictated By: RENNY GARCIA DO
--- NOTE | 2016-11-05 07:17 | Diagnostic Imaging Report ---
INDICATION: Dyspnea. COMPARISON: Earlier the same day FINDINGS: Single frontal radiographic view of the chest was obtained and demonstrates interval placement of endotracheal tube, tip of which terminates at the clavicular heads. Enteric tube extends inferiorly beyond the [id number]. Right internal jugular central venous catheter is again seen with tip in the SVC. Cardiac silhouette and pulmonary vasculature stable. There is blunting of the left lateral costophrenic angle consistent with small effusion. No pneumothorax is seen on either side. Overall, aeration is stable. IMPRESSION: 1. Lines and tubes as above. 2. Probable small left basilar effusion. Dictated by: Dictated on workstation # [id number]
--- NOTE | 2016-11-05 07:18 | Pulmonary Consultation ---
History of Present Illness History of Present Illness Date of Consultation 11/05/16 07:10 Date of Admission History of Present Illness 86yo with hx of severe COPD oxygen dependent presented secondary to ED via EMS secondary to worsening SOB and CP. Onset was 2 wks ago. He has 2 + pitting edema bilaterally. Pt was found to have temp of 101.9. Micro called me this AM to report abundant GNR in sputum. It appears pt lives at home with . PT was admitted to 4th floor and then transferred to ICU secondary to rapid progressive decline. While in the ICU pt was intubated secondary to acute respiratory failure and WOB. Unable to obtain ROS secondary to pt being sedated on vent. I am consulted for ICU pulmonary management. Allergies and Home Medications Allergies Coded Allergies: spironolactone (Verified Allergy, Unknown, 11/04/16) Home Medications ASA/Salicylam/Acetaminoph/Caff 1 Each Tablet, 1 EACH PO, (Reported) Albuterol Sulfate 0.63 Mg/3 Ml Vial.neb, 0.63 MG IH, (Reported) Budesonide/Formoterol Fumarate 10.2 Gm Hfa.aer.ad, 2 PUFF IH BID, (Reported) Calcium Carbonate 500 Mg Tablet, 500 MG PO, (Reported) Cod Liver Oil 1 Each Capsule, 1 EACH PO, (Reported) Fexofenadine/Pseudoephedrine 1 Each Tab.er.24h, 1 EACH PO, (Reported) Furosemide 80 Mg Tablet, 80 MG PO, (Reported) Ipratropium [place] 0.2 Mg/1 Ml Solution, 0.2 MG IH, (Reported) [place]-3 Fatty Acids 300 Mg Capsule, 300 MG PO, (Reported) Omeprazole 20 Mg Capsule.dr, 20 MG PO, (Reported) Polyethylene Glycol 3350 17 Gm Powd.pack, 17 GM PO, (Reported) Potassium 99 Mg Tablet, 99 MG PO, (Reported) Vit A/C/E/Zinc/Co 1 Cap Capsule, 1 CAP PO, (Reported) Past Qjkmpui-Oaerjh-Pjptbo Hx Patient Social History Alcohol Use: Denies Use Recreational Drug Use: No Smoking Status: Never a Smoker 2nd Hand Smoke Exposure: No Recent Foreign Travel: No Contact w/Someone Who Travel: No Recent Infectious Disease Expo: No Recent Hopitalizations: No Physical Abuse Screen: No Sexual Abuse: No Seasonal Allergies Seasonal Allergies: No Surgeries HX Surgeries: Yes Surgeries: CABG Respiratory Respiratory Disorders: Pneumonia, COPD Cardiovascular Cardiac Disorders: Hypertension Family Medical History Significant Family History: Other Conditions/Hx (unable to obtain) Exam Exam Vital Signs Date Time Temp Pulse Resp B/P (MAP) Pulse Ox O2 Delivery O2 Flow Rate FiO2 11/05/16 06:47 134 19 96 40 11/05/16 06:00 131 18 132/52 95 6.00 11/05/16 05:00 134 20 131/54 92 6.00 11/05/16 04:37 138 11/05/16 04:37 133 18 95 40 11/05/16 04:00 133 8 134/47 95 6.00 11/05/16 04:00 40 11/05/16 03:00 138 26 108/63 95 6.00 11/05/16 02:48 99.1 6.00 11/05/16 02:30 100 30 106/60 94 6.00 11/05/16 02:00 106 30 99/61 97 6.00 11/05/16 01:30 105 53 106/68 97 6.00 11/05/16 01:00 106 11/05/16 01:00 102 18 99/63 95 6.00 11/05/16 00:30 103 32 64/44 97 6.00 11/05/16 00:15 106 22 77/50 96 6.00 11/05/16 00:00 6.00 11/05/16 00:00 100.9 6.00 11/05/16 00:00 100.9 6.00 11/05/16 00:00 108 36 74/45 96 6.00 11/04/16 23:45 109 35 69/49 95 2.00 11/04/16 23:35 114 70/40 11/04/16 23:30 114 32 69/42 90 2.00 11/04/16 23:07 99 4.00 11/04/16 23:05 99 11/04/16 22:30 2.00 11/04/16 22:00 100.6 125 18 122/68 95 2.00 11/04/16 21:23 101.0 122 24 99 2.00 11/04/16 19:27 99.9 11/04/16 19:05 97 Nasal Cannula 2.00 97 11/04/16 19:05 Nasal Cannula 2.0 11/04/16 19:05 99.9 123 24 112/66 99 Nasal Cannula 2.0 I & O 11/05/16 07:00 Intake Total 4859 ml Output Total 450 ml Balance 4409 ml General Appearance: No Apparent Distress (pt is sedated on vent), Cachetic HEENT: Normal ENT Inspection (ET tube in place) Neck: Supple, No Carotid Bruit, No JVD Respiratory: No Accessory Muscle Use, No Respiratory Distress, Decreased Breath Sounds Cardiovascular: Tachycardia Capillary Refill: Less Than 3 Seconds Gastrointestinal: normal bowel sounds, non tender, soft, no organomegaly Neurologic/Psychiatric: Other (sedated on vent) Skin: Normal Color, Warm/Dry Lymphatic: No Adenopathy Results Lab Laboratory Tests 11/04/16 19:18 11/05/16 00:20 11/05/16 03:45 Assessment/Plan Assessment/Plan Severe sepsis with septic shock secondary to pneumonia -PT has received 5+ liters of -Continue aggressive IVF and check CVP monitoring -Give liter bolus of LR and change IVF to LR at 150cc/hr -wean levophed as tolerated for SBP >90and MAP of 65 -change solumedrol to solucortef 100 IV Q8 acute respiratory failure with Pneumonia with GNR in sputum -Change Abx to Levaquin and cefepime and await sensitivities (pt lives at home with ) -Continue ventilator mgmt Small left pleural effusion r/o abscess COPD with acute respiratory failure -SVNs Q4 cachectic/dehydrated -IVF -hold on nutrition for now secondary to septic shock CXR is not impressive for degree of respiratory failure and sepsis. -Check CTA of chest and abdomen. 255 45 min spent with patient Clinical Quality Measures DVT/VTE Risk/Contraindication: Risk Factor Score Per Nursin RFS Level Per Nursing on Admit: 4+=Very High NGOZI CHAN DO Nov 05, 2016 07:18
[2016-11-05] MEDS ORDERED: LACTATED RINGERS 2,000 ML IV ONE (07:22)
[2016-11-05] MEDS: D5 1/2 NS W/KCL 20 MEQ/L 1,000 ML IV SCH (07:28)
[2016-11-05] MEDS ORDERED: LACTATED RINGERS 1,000 ML IV ONE (07:30)
[2016-11-05] MEDS ORDERED: IOHEXOL 350 MG/ML 150 ML (OMNIPAQUE 350) VIAL IV ONE (08:15)
[2016-11-05] MEDS ORDERED: CATHETER FLUSH 10 ML SYR IV PRN (08:15)
[2016-11-05] MEDS ORDERED: NS 100 ML (IVPB) BAG IV ONE (08:15)
[2016-11-05] MEDS: LACTATED RINGERS 1,000 ML IV SCH ×3 (08:31→21:47)
[2016-11-05] MEDS: inSUlin (REGULAR) HUMAN 1 UNIT/0.01 ML (CHARGE PER UNIT) SC SCH ×2 (08:38→12:06)
[2016-11-05] MEDS ORDERED: AZITHROMYCIN 250 MG TAB (ZITHROMAX) PO SCH (09:00)
[2016-11-05] MEDS ORDERED: CEFEPIME INJECTION 2,000 MG in NS (IVPB) 50 ML IV SCH (09:00)
[2016-11-05] MEDS ORDERED: VASOPRESSIN INJECTION 20 UNIT in NS (IVPB) 50 ML IV SCH (09:45)
[2016-11-05] MEDS ORDERED: FEXO180T84 PO (10:44)
[2016-11-05] MEDS ORDERED: POTA10TA PO (10:44)
[2016-11-05] MEDS ORDERED: HYDR-3816 PO (10:44)
--- NOTE | 2016-11-05 10:46 | Physical Therapy Progress Note ---
Therapy Progress Note Patient is currently sedated and on ventilator. No skilled PT indicated at this time. No treatment per RN (Dewayne). Will continue to monitor patient status. DESHAUN SCHAEFFER PT Nov 05, 2016 10:46
[2016-11-05] MEDS ORDERED: ASCO60LO9 PO (10:50)
[2016-11-05] MEDS: RT-ALBUTEROL/IPRATROPIUM 3 ML (DUONEB) VIAL INH SCH ×2 (10:54→14:27)
--- NOTE | 2016-11-05 11:05 | Occ Therapy Progress Note ---
Therapy Progress Note 1057 Pt sedated and on vent. Will hold OT evaluation until pt is able to participate. Thank you for this referral. CAMILO MAURICE OT Nov 05, 2016 11:05
--- NOTE | 2016-11-05 11:17 | History & Physical-Hospitalist ---
HPI History of Present Illness: HPI/Chief Complaint CC: Fever and weakness HPI: This is a 86 yoWM pt of [facility] who presented to ER with the above. Pt has pneumonia and sepsis and was placed on IVF. Pt worsened through the night with an increase in lactic acid and low BP prompting ICU transfer and intubation b/c he wanted everything done in the case of a critical illness Dr. 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 Romano. Source: RN/MD Exam Limitations: clinical condition Date Seen 11/05/16 Attending Physician Elfego Mccray MD PCP Elfego Mccray MD Referring Physician Date of Admission November 04, 2016 at 20:10 Home Medications & Allergies Home Medications Reviewed patient Home Medication Reconciliation Form Allergies Allergies Coded Allergies levofloxacin (Verified Allergy, Intermediate, RASH, 07/05/12) spironolactone (Verified Allergy, Mild, swelling rt breast, 10/08/13) Past Egxhaoh-Frqezs-Ezvpiy Hx Patient Social History Marrital Status: Employed/Student: retired Alcohol Use: Denies Use Recreational Drug Use: No Smoking Status: Never a Smoker 2nd Hand Smoke Exposure: No Physical Abuse Screen: No Sexual Abuse: No Recent Foreign Travel: No Contact w/other who traveled: No Recent Hopitalizations: No Recent Infectious Disease Expo: No Seasonal Allergies Seasonal Allergies: No Surgeries HX Surgeries: Yes Surgeries: CABG Respiratory Hx Respiratory Disorders: No Cardiovascular Hx Cardiovascular Disorders: Yes Cardiac Disorders: Hypertension Neurological Hx Neurological Disorders: No Genitourinary Hx Genitourinary Disorders: No Gastrointestinal Hx Gastrointestinal Disorders: No Musculoskeletal Hx Musculoskeletal Disorders: Yes Musculoskeletal Disorders: Arthritis Endocrine Hx Endocrine Disorders: No Cancer Hx Cancer: No Psychosocial Hx Psychiatric Problems: No Family Medical History Significant Family History: Other Conditions/Hx (unable to obtain) Family Hx: Patient reports no known family medical history. Review of Systems ROS-Unable to Obtain: unable to ascertain since patient is intubated and no family at bedside Constitutional: see HPI Physical Exam Physical Exam Vital Signs Vital Sign - Last 12Hours 11/04/16 19:05 FiO2 97 Capillary Refill : Less Than 3 Seconds General Appearance: No Apparent Distress, Chronically ill, Other (intubated) Respiratory: Lungs Clear, Normal Breath Sounds, Other (on ventilator) Cardiovascular: Regular Rate, Rhythm, No Edema, No Gallop Gastrointestinal: Distended Results Results/Procedures Lab Laboratory Tests 11/04/16 19:18 11/05/16 00:20 11/05/16 03:45 Assessment/Plan Admission Diagnosis Assessment: Multisystem organ failure with respiratory failure and septic shock requiring pressor therapy and IV fluid initiation with CT scan showing widespread metastasis of pancreatic cancer Assessment and Plan Plan: Dr. Thorne suggests [facility]ospice [facility] and Dr Weinberg spoke to family with palliative care nurse and will initiate terminal extubation once the rest of the family arrives Clinical Quality Measures DVT/VTE Risk/Contraindication: Risk Factor Score Per Nursin RFS Level Per Nursing on Admit: 4+=Very High TIEN ROMANO DO Nov 05, 2016 11:17
--- NOTE | 2016-11-05 11:28 | Diagnostic Imaging Report ---
CT angiogram of the chest and routine CT scan of the abdomen and pelvis performed with intravenous contrast. INDICATION: Severe sepsis FINDINGS: CTA chest: There is an ET tube and NG tube both in good position. The pulmonary artery is mildly dilated which may relate to a underlying pulmonary hypertension. There are peripheral filling defects seen in segmental branches of the pulmonary arteries suggestive of chronic pulmonary embolism. There is no central PE in the pulmonary trunk the lobar branches. The heart size is near the upper limits of normal. No pericardial effusion. Bilateral small pleural effusion is seen. Left lower lobe consolidation is favored to be atelectasis. Patchy nonspecific consolidation in the lateral posterior aspect of the left upper lobe is seen. Mild pneumonia is not excluded. No CT evidence of empyema. There is a nonspecific 1.2 cm lymph node adjacent to the descending thoracic aorta. No other mediastinal lymphadenopathy. No hilar or axillary lymphadenopathy. The osseous structures and the thoracic spine demonstrate bridging osteophytes. There is a right internal jugular line terminating in the SVC. Evidence of a healed prior sternotomy is seen. CT abdomen and pelvis: There is a small to moderate amount of ascites. There is some early omental caking with numerous omental deposits suggestive of metastasis. Prominent thickening above the right seminal vesicle is not well from the seminal vesicle but is probably location for omental deposit as well. There are also enlarged lymph nodes in perigastric location near the greater curvature measuring 2 cm and in the left para-aortic station measuring 1.6 CM. The head of the pancreas demonstrates a large mass measuring 4.8 x 6.1 CM. This appears to result in mild intrahepatic biliary dilatation and mild CBD dilatation up to 8 mm. The gallbladder however is significantly dilated with arterial phase imaging demonstrating hyperemia in the liver along the gallbladder bed and a small amount of pericholecystic fluid and enhancement. The findings are concerning for a calculus cholecystitis. Multiple nonspecific subcentimeter hypodense lesions in the liver are too small to accurately characterize. The spleen and adrenals are unremarkable. There is a mild to moderate right-sided hydronephrosis and lack of excretion of contrast in the delayed phase with dilated proximal ureter. Transition is at the upper pelvis level and appears to be related to a lymph node enlargement measuring 2.8 x 2.5 CM along the right common iliac chain. This probably compresses or invades the right ureter. No definite CT evidence of a superimposed right renal infection. The left kidney demonstrates normal enhancement and excretion with no hydronephrosis. Simple cysts are seen. The abdominal aorta is normal in caliber with atherosclerotic changes. There is an IVC filter with abnormal orientation related to rotation and migration with the tip of the filter migrated outside the IVC. There is a thrombus within the filter with slight extension above the filter that is partially occlusive to the IVC. The thrombus also has an extension into the iliac vein confluence. There is diverticulosis extensive in the sigmoid colon. No definitive evidence of diverticulitis or abscess. There is a Rockwell catheter partially decompressing the bladder. Beam hardening artifacts from internal fixation screws through the right femoral neck is seen. The osseous structures demonstrate prior kyphoplasty at the L1 level. No aggressive appearing mass to suggest bone metastasis. Impression: CTA chest: 1. Suggestion of chronic PE in segmental branches of the lungs bilaterally. No evidence of central or acute pulmonary embolism. 2. Dilated pulmonary arteries suggestive of a pulmonary hypertension. 3. Tiny pleural effusions with minimal consolidation in the left lung base and minimal patchy consolidation in the posterior segment of the right upper lobe. These are favored to be atelectasis over pneumonia. CT abdomen and pelvis: 1. Large pancreatic head mass suspicious for pancreatic cancer, with numerous omental metastasis and small to moderate ascites. 2. The mass results in mild biliary obstruction with mildly dilated CBD and intrahepatic ducts. The gallbladder however is significantly dilated with pericholecystic fluid and hyperemia of the adjacent liver concerning for acalculus cholecystitis. 3. Mild to moderate right hydronephrosis related to obstruction of the mid right ureter from a right common iliac 2.8 cm lymph node mass. No CT evidence of right renal infection. 4. There is an infrarenal IVC filter with rotation and slight migration of parts of it outside the IVC into the adjacent fat. There is a thrombus mostly underneath the filter with some propagation superiorly. The distal portion of the thrombus is extending to the common iliac veins on both sides. There is evidence of some blood flow around the thrombus. 5. Diverticulosis. The findings were discussed with Dr. Weinberg at time of dictation. Dictated by: Dictated on workstation # [id number]
--- NOTE | 2016-11-05 11:33 | Pulmonary Progress Note ---
Standard Progress Note Progress Notes Assessment & Plan Severe sepsis with septic shock secondary to pneumonia acute respiratory failure with Pneumonia with GNR in sputum Small left pleural effusion r/o abscess COPD with acute respiratory failure - cachectic/dehydrated CT scan shows severe metastatic pancreatic cancer. I dicussed patients current condition with family. Pt has very poor prognosis. Family has elected for comfort care only. They know he will most likely today. 30min was spent with family and patient. NGOZI CHAN DO Nov 05, 2016 11:33
--- NOTE | 2016-11-05 13:00 | Diagnostic Imaging Report ---
PROCEDURE: US abdomen complete. TECHNIQUE: Multiple real-time grayscale images were obtained over the abdomen in various projections. INDICATION: Sepsis. Elevated bilirubin. Findings: The pancreas is obscured by bowel gas. The liver demonstrate increased echogenicity around the portal triads with suggestion of mild intrahepatic biliary dilatation. No focal mass. There is hepatopetal flow in the portal vein. The gallbladder demonstrate sludge and debris in the lumen. It is distended. There is no significant wall thickening. There is a small amount of pericholecystic fluid. Sonographic Sarabia sign cannot be assessed due to intubation. No gallbladder stones. The spleen is mildly enlarged. It is 13.5 CM in length. The proximal abdominal aorta portion is seen and appears normal. Distally the aorta is obscured. The IVC visualized portion appear unremarkable in the upper abdomen. The right kidney is 12.7 and the left kidney is 11.8 CM in length. No hydronephrosis. Portions of the kidneys particularly the left side are not well seen due to shadowing. There is a simple cyst suggested in the mid right kidney measuring 1.8 CM and smaller other cyst inferiorly. IMPRESSION: There is suggestion of mild dilatation of the intrahepatic bile ducts. The gallbladder is dilated with internal sludge and debris. There is no significant gallbladder wall thickening. Sonographic Sarabia's sign cannot be assessed. The pericholecystic fluid could be from the ascites that the patient has. The adjacent liver hyperemia and enhancement of the mucosa on CT scan however is concerning for acalculus cholecystitis. Dictated by: Dictated on workstation # [id number]
[2016-11-05] MEDS ORDERED: HYDROCORTISONE 100 MG/2 ML (Solu-CORTEF) VIAL IV SCH (14:00)
[2016-11-05] MEDS ORDERED: AZITHROMYCIN 250 MG/NS 250 ML IVPB IV SCH ×2 (21:00)
[2016-11-06] VITALS (8 sets, daily range): BP systolic 30–91; BP diastolic 22–56
[2016-11-06] MEDS: LORazepam INJ 2 MG/ML (ATIVAN) VIAL IVP PRN ×4 (00:13→05:48)
[2016-11-06] MEDS: morphine INJ 4 MG/ML 1 ML (VIAL/SYRINGE) IVP PRN ×5 (00:13→17:25)
[2016-11-06] MEDS: LACTATED RINGERS 1,000 ML IV SCH (03:48)
--- NOTE | 2016-11-06 10:06 | Pulmonary Progress Note ---
Exam Exam Vital Signs Date Time Temp Pulse Resp B/P (MAP) Pulse Ox O2 Delivery O2 Flow Rate FiO2 11/06/16 06:00 94 25 41/23 89 11/06/16 05:00 103 26 40/22 91 11/06/16 04:00 103 33 31/27 91 11/06/16 03:00 97 18 30/26 93 11/06/16 02:00 98 47 35/22 92 11/06/16 01:00 100 26 39/26 93 11/06/16 01:00 109 11/06/16 00:00 138 25 91/56 97 40.00 50.00 11/06/16 00:00 96 40.00 11/05/16 23:00 138 26 94/58 97 40.00 50.00 11/05/16 22:00 140 26 97/59 97 40.00 50.00 11/05/16 21:40 97/59 11/05/16 21:00 140 24 99/60 97 40.00 50.00 11/05/16 20:24 140 27 97 40 11/05/16 20:00 98.6 40.00 11/05/16 20:00 96 40.00 11/05/16 20:00 138 28 100/61 97 50.00 11/05/16 19:00 138 27 101/60 97 50.00 11/05/16 19:00 138 11/05/16 18:27 140 27 96 40 11/05/16 18:00 141 24 103/61 97 50.00 11/05/16 17:00 140 26 99/59 97 50.00 11/05/16 16:01 138 98/57 11/05/16 16:00 138 27 96/56 97 50.00 11/05/16 16:00 40 11/05/16 15:00 138 27 101/58 97 50.00 11/05/16 14:28 138 25 97 40 11/05/16 14:00 128 24 102/57 97 50.00 11/05/16 13:00 138 11/05/16 13:00 140 27 104/54 97 50.00 11/05/16 12:05 96.7 11/05/16 12:02 40 11/05/16 11:00 141 24 143/75 97 50.00 11/05/16 10:55 131 24 97 40 11/05/16 10:07 138 120/67 I & O 11/06/16 07:00 Intake Total 5082 ml Output Total 750 ml Balance 4332 ml General Appearance: No Apparent Distress, Chronically ill, Other (sedate) HEENT: Normal ENT Inspection (ET tube in place) Neck: Supple, No Carotid Bruit, No JVD Respiratory: Normal Breath Sounds, Decreased Breath Sounds Cardiovascular: Regular Rate, Rhythm, No Edema, No Gallop Capillary Refill: Less Than 3 Seconds Gastrointestinal: normal bowel sounds, non tender, soft, no organomegaly Skin: Warm/Dry Lymphatic: No Adenopathy Results Lab Laboratory Tests 11/04/16 19:18 11/05/16 00:20 11/05/16 03:45 Assessment/Plan Assessment/Plan Severe sepsis with septic shock secondary to pneumonia Metastatic pancreatic cancer - Ecoli bacteremia Small left pleural effusion r/o abscess COPD with acute respiratory failure cachectic/dehydrated Pt is now comfort measures only per family request. Pt is currently comfortable. 232 Clinical Quality Measures DVT/VTE Risk/Contraindication: Risk Factor Score Per Nursin RFS Level Per Nursing on Admit: 4+=Very High NGOZI CHAN DO Nov 06, 2016 10:06
[2016-11-06] MEDS ORDERED: RT-ALBUTEROL/IPRATROPIUM 3 ML (DUONEB) VIAL INH PRN (11:15)
[2016-11-06] MEDS ORDERED: LORazepam INJ 2 MG/ML (ATIVAN) VIAL IVP PRN (11:15)
[2016-11-06] MEDS ORDERED: ONDANSETRON 4 MG/2 ML (SDV) Z0FRAN IVP PRN (11:15)
[2016-11-06] MEDS ORDERED: ARTIFICIAL TEARS OINT (LACRI-LUBE) 3.5 GM TUBE OU PRN (11:15)
[2016-11-06] MEDS ORDERED: ARTIFICAL TEARS 0.4 ML UNIT DOSE (REFRESH PLUS) OU PRN (11:15)
[2016-11-06] MEDS ORDERED: SALIVA STIMULANT MOUTH SPRAY (BIOTENE) 1.5 OZ MM PRN (11:15)
[2016-11-06] MEDS ORDERED: ACETAMINOPHEN 650 MG SUPP (TYLENOL) PR PRN (11:15)
--- NOTE | 2016-11-06 11:49 | Progress Note-Hospitalist ---
Progress Note HPI/CC on Admission CC: Fever and weakness HPI: This is a 86 yoWM pt of [facility] who presented to ER with the above. Pt has pneumonia and sepsis and was placed on IVF. Pt worsened through the night with an increase in lactic acid and low BP prompting ICU transfer and intubation b/c he wanted everything done in the case of a critical illness Dr. 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 Garcia. 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 Garcia. TIEN GARCIA DO Nov 06, 2016 11:49
[2016-11-06] MEDS: GLYCOPYRROLATE 0.2 MG/ML (ROBINUL) 2 ML VIAL IV PRN (17:26)
[2016-11-07] MEDS: morphine INJ 4 MG/ML 1 ML (VIAL/SYRINGE) IVP PRN ×2 (05:24→13:50)
--- NOTE | 2016-11-07 11:24 | Progress Note-Hospitalist ---
Progress Note HPI/CC on Admission CC: Fever and weakness HPI: This is a 86 yoWM pt of [facility] who presented to ER with the above. Pt has pneumonia and sepsis and was placed on IVF. Pt worsened through the night with an increase in lactic acid and low BP prompting ICU transfer and intubation b/c he wanted everything done in the case of a critical illness Dr. 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 Garcia. 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
[2016-11-08] MEDS: morphine INJ 4 MG/ML 1 ML (VIAL/SYRINGE) IVP PRN ×3 (05:37→18:07)
[2016-11-08] MEDS: GLYCOPYRROLATE 0.2 MG/ML (ROBINUL) 2 ML VIAL IV PRN (05:49)
--- NOTE | 2016-11-08 11:18 | Progress Note-Hospitalist ---
Progress Note HPI/CC on Admission CC: Fever and weakness HPI: This is a 86 yoWM pt of [facility] who presented to ER with the above. Pt has pneumonia and sepsis and was placed on IVF. Pt worsened through the night with an increase in lactic acid and low BP prompting ICU transfer and intubation b/c he wanted everything done in the case of a critical illness Dr. 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 Garcia. 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
--- NOTE | 2016-11-09 08:49 | Discharge Summary-Hospitalist ---
Diagnosis/Chief Complaint Date of Admission November 04, 2016 at 20:10 Date of Discharge Admission Diagnosis Assessment: Multisystem organ failure with respiratory failure and septic shock requiring pressor therapy and IV fluid initiation with CT scan showing widespread metastasis of pancreatic cancer Discharge Diagnosis Assessment: Multisystem organ failure with respiratory failure and septic shock requiring pressor therapy and IV fluid initiation with CT scan showing widespread metastasis of pancreatic cancer wellness assistant: Having no issues Updated family at bedside Patient exam: Comatose appears to be in no pain Plan: Comfort Care Reason Hospital Visit/Course CC: Fever and weakness HPI: This is a 86 yoWM pt of [facility] who presented to ER with the above. Pt has pneumonia and sepsis and was placed on IVF. Pt worsened through the night with an increase in lactic acid and low BP prompting ICU transfer and intubation b/c he wanted everything done in the case of a critical illness Dr. Weinberg Review: Pt showed Acute Cholecystitis, and Pancreatic CA widespread encompassing most of abdominal cavity and organs wellness assistant: s/p 6 L of fluid now and 15 mcg of Levophed pressor Patient Interview: Physical exam stable Scribed by Aliza Kothari under the direct supervision of Dr. Garcia. Hospital course: Patient had an uneventful hospital course he was quickly placed on comfort care after he was extubated when he had respiratory failure CT scan obtained by Dr. Weinberg showing widespread pancreatic cancer with end-of- life status. Family was notified and everyone agreed on the plan and he was kept comfortable placed on comfort care protocol and he on 11/09/16 at 0320 hours. Discharge Summary Discharge Physical Examination Allergies: Coded Allergies: levofloxacin (Verified Allergy, Intermediate, RASH, 07/05/12) spironolactone (Verified Allergy, Mild, swelling rt breast, 10/08/13) Vitals & I&Os Vital Signs Date Time Temp Pulse Resp B/P (MAP) Pulse Ox O2 Delivery O2 Flow Rate FiO2 11/07/16 14:20 96.6 11/06/16 07:00 92 13 39/27 89 11/06/16 00:00 40.00 50.00 11/05/16 20:24 40 11/04/16 19:05 Nasal Cannula Hospital Course Labs (last 24 hrs) Microbiology 11/04/16 Blood Culture - Preliminary, Resulted Escherichia Coli Klebsiella Pneumoniae See Comments 11/05/16 Gram Stain - Final, Complete 11/05/16 Sputum Culture - Final, Complete Usual/normal sheri isolated. Discharge Home Medications: Active Scripts Active Reported [employer] (Ascorbic Acid) 60 Mg Lozenge 60 Mg PO DAILY Hydrocodon-Acetaminoph 7.5-325 (Hydrocodone/Acetaminophen) 1 Each Tablet 1 Tab PO Q6H PRN [facility] (Fexofenadine HCl) 180 Mg Tablet 180 Mg PO DAILY K-Tab ER (Potassium Chloride) 10 Meq Tablet.er 20 Meq PO HS TAKES 2 (10MEQ) TABLETS Miralax (Polyethylene Glycol 3350) 17 Gm Powd.pack 17 Gm PO DAILY Preservision Areds Softgel (Vit A/C/E/Zinc/Co) 1 Cap Capsule 1 Cap PO Cod Liver Oil 1 Each Capsule 1 Each PO Furosemide 80 Mg Tablet 80 Mg PO DAILY PRESCRIPTION STATES 1-2 (80MG) TABLETS DAILY - PATIETN ONLY HAD 1 TABLET DAILY IN THE PILL TICKET ATTENDANT Symbicort 80-4.5 Mcg Inhaler (Budesonide/Formoterol Fumarate) 10.2 Gm Hfa.aer.ad 2 Puff IH BID Ipratropium [place] 0.2 Mg/1 Ml Solution 0.2 Mg NEB QID PRN LAST FILLED IN MAY Albuterol Sulfate 2.5 Mg/3 Ml Vial.neb 2.5 Mg NEB QID PRN Aspirin Ec Tab (Aspirin) 325 Mg Tabec 325 Mg PO DAILY Calcium 600 + Vit D Tablet (Calcium Carbonate/Vitamin D3) 1 Each Tablet 2 Tab PO HS Fish Oil 1,000 Mg Cap 1,000 Mg PO DAILY Prilosec 20 Mg (Omeprazole) 20 Mg Capsule.dr 20 Mg PO DAILY Instructions to patient/family Please see electonic discharge instructions given to patient. Clinical Quality Measures DVT/VTE Risk/Contraindication: Risk Factor Score Per Nursin RFS Level Per Nursing on Admit: 4+=Very High TIEN GARCIA DO Nov 09, 2016 08:49
== END 2016-11-09 08:10 | disposition expired | DRG 871 ==
LOC: ER 19:07 → MERGE 20:10 → EDBD 20:10 → 4TH 20:10 → ICU 23:17 → 4TH 11-06 09:11
PROVIDERS: ADMIT Internal Medicine; ATTEND Internal Medicine
PROC: 5A1935Z Respiratory Ventilation, Less than 24 Consecutive Hours (ICD-10-PCS; principal; 2016-11-05)
DX: A41.51 Sepsis due to Escherichia coli [E. coli] (principal); R65.21 Severe sepsis with septic shock; J44.0 Chronic obstructive pulmonary disease with (acute) lower respiratory infection; J18.9 Pneumonia, unspecified organism; J96.01 Acute respiratory failure with hypoxia; K81.0 Acute cholecystitis; C25.9 Malignant neoplasm of pancreas, unspecified; Z51.5 Encounter for palliative care; Z66 Do not resuscitate; C79.89 Secondary malignant neoplasm of other specified sites; E86.0 Dehydration; R64 Cachexia; J90 Pleural effusion, not elsewhere classified; I87.2 Venous insufficiency (chronic) (peripheral); I10 Essential (primary) hypertension; E87.6 Hypokalemia; D69.6 Thrombocytopenia, unspecified; Z95.1 Presence of aortocoronary bypass graft
CPT/HCPCS: 36415; 51702; 71010; 71275; 74177; 76700; 80048; 80053; 81000; 82274; 82550; 82553; 82805; 82962; 83605; 83735; 83880; 84100; 84443; 84484; 85007; 85027; 85610; 85730; 87040; 87070; 87077; 87081; 87186; 87205; 93005; 93041; 94002; 94640; 94799; 96361; 96365; 96375